=== PATIENT | female | born 2000 | race Caucasian/White ===

== ENCOUNTER 2018-01-27 17:20 | Emergency (ER) | payer BC ==
[2018-01-27 19:43] VITALS: BP 129/65
[2018-01-27] MEDS: Ibuprofen TAB* 600 MG PO ONE (19:45)
--- NOTE | 2018-01-27 20:01 | UC ---
HPI Febrile Illness - HPI Summary HPI Summary: 5 days of myalgias, headache and fever. No cough, negative flu. Student at [employer], lots of exposures. No vomiting or diarrhea, no urinary sx, no vaginal sx, no abdominal pain. - History of Current Complaint Chief Complaint: UCGeneralIllness Time Seen by Provider: 01/27/18 17:51 Hx Obtained From: Patient Hx Last Menstrual Period: 01/03/18 Onset/Duration: Started Days Ago - 5 Timing: Intermittent, Lasting Hours Temperature: 103 F Initial Severity: Mild Current Severity: Moderate Pain Intensity: 3 Aggravating Factors: Nothing Associated Signs and Symptoms: Headache, Myalgia - Risk Factors Pseudomonas Risk Factors: Negative Serious Bacterial Infection Risk Factors: Negative - Additional Pertinent History Current Antibiotics: No - Allergy/Home Medications Allergies/Adverse Reactions: Allergies Allergy/AdvReac Type Severity Reaction Status Date / Time amoxicillin [From Augmentin] Allergy Rash Verified 01/27/18 17:37 clavulanic acid Allergy Rash Verified 01/27/18 17:37 [From Augmentin] Home Medications: Home Medications Tri-Estarylla (Nf) [Tri-Estarylla] 1 tab PO DAILY 01/27/18 [History Confirmed ] PMH/Surg Hx/FS Hx/Imm Hx Previously Healthy: Yes - Surgical History Surgical History: None - Family History Known Family History: Positive: None - parents living and healthy - Social History Occupation: Student Lives: Alone Alcohol Use: Rare Substance Use Type: None Smoking Status (MU): Never Smoked Tobacco Review of Systems Constitutional: Fever, Fatigue Skin: Negative Eyes: Negative ENT: Negative Respiratory: Negative Cardiovascular: Negative Gastrointestinal: Negative Genitourinary: Negative Motor: Negative Neurovascular: Negative Musculoskeletal: Myalgia Neurological: Headache - frontal, no photophobia or eye findings. Psychological: Negative Is Patient Immunocompromised?: No All Other Systems Reviewed And Are Negative: Yes Physical Exam Triage Information Reviewed: Yes Appearance: Ill-Appearing - looks mildly unwell, well hydrated, febrile and flushed, alert and interactive. Vital Signs: Initial Vital Signs Temp 100.7 F 01/27/18 17:35 Pulse 100 01/27/18 17:35 Resp 18 01/27/18 17:35 BP 136/69 01/27/18 17:35 Pulse Ox 99 01/27/18 17:35 Vital Signs Reviewed: Yes Eyes: Positive: Conjunctiva Clear ENT: Positive: Pharyngeal erythema, TMs normal, Tonsillar swelling - minimal swelling, no exudate Neck: Positive: Supple, Nontender, Enlarged Nodes @ - left tonsillar, right posterior cervical, about 6 small palpable occipital nodes. 1 2 cm node in posterior left axilla, small nodes left inguinal Respiratory: Positive: Lungs clear, Normal breath sounds Cardiovascular: Positive: RRR, No Murmur, Tachycardia Abdomen Description: Positive: Nontender, Soft, Splenomegaly - possible. Pina' s space dull, but cannot capture spleen in the left decubitus position. Neurological: Positive: Alert, Muscle Tone Normal Psychological Exam: Normal Skin Exam: Other - flushed, sweating, no rashes. Course/Dx - Course Course Of Treatment: clincal findings consistent with mono, labs done. Discussed symptomatic treatment. - Febrile Illness Differential Diagnoses: Fever of Unknown Origin, Pneumonia, Other: - UTI, influenza - Diagnoses Clinic Provider Diagnoses: infectious mononucleosus Discharge - Discharge Plan Condition: Stable Disposition: HOME Patient Education Materials: Mononucleosis (ED) Referrals: Non Staff,Doctor [Primary Care Provider] - Additional Instructions: Clinically, the findings of lymph nodes and fever suggest mononucleosus. This is a viral illness with a very variable course. The best thing is to increase your rest and sleep, stay hydrated. I suggest a follow up visit to your primary care doctor next week for a recheck of your spleen, which might be a little enlarged. Confirmatory lab testing results will be available tomorrow afternoon. You can call for a report.
[2018-01-28 12:51] LABS: ABS Neutrophils 2.3 10^3/ul (1.5-7.7); Hematocrit 38 % (35-47); Hemoglobin 13.4 g/dl (12.0-16.0); Mean Corpuscular HGB Conc 35 g/dl (31-36); Mean Corpuscular Hemoglobin 30 pg (27-31); Mean Corpuscular Volume 85 fL (80-97); Mean Platelet Volume 10 um3 (7.4-10.4); Platelet Count 91 10^3/ul (150-450); Red Blood Count 4.53 10^6/ul (4.0-5.4); Red Cell Distribution Width 14 % (10.5-15); White Blood Count 3.9 10^3/ul (3.5-10.8)
[2018-01-28 12:58] LABS: Monocytes % 9 % (0-7)
== END 2018-01-27 20:28 | disposition home or self-care (01) ==
LOC: UCCORT 17:20
DX: B27.90 Infectious mononucleosis, unspecified without complication (principal); Z88.0 Allergy status to penicillin; Z88.8 Allergy status to other drugs, medicaments and biological substances
CPT/HCPCS: 36415; 85025; 85060; 86308; 87502; 99202; A9270-GY; G0463

== ENCOUNTER 2018-02-13 08:09 | Emergency (ER) | payer BC ==
[2018-02-13 08:22] VITALS: BP 137/69
--- NOTE | 2018-02-13 08:30 | UC ---
Throat Pain/Nasal Maurizio HPI - HPI Summary HPI Summary: sore throat, nasal congestion, ear pain bilaterally, npc, difficulty swallowing. [facility] and treated with prednisone for 5days without relief. has fever/chills taking ibuprofen otc with some relief of fever/ discomfort. - History of Current Complaint Chief Complaint: UCGeneralIllness Stated Complaint: SORE THROAT Time Seen by Provider: 02/13/18 08:24 Hx Obtained From: Patient Hx Last Menstrual Period: 01/31/18 Onset/Duration: Lasting Days Severity: Severe Pain Intensity: 10 Cough: Nonproductive Associated Signs & Symptoms: Positive: Dysphagia, Sinus Discomfort, Nasal Discharge, Fever - Epiglottits Risk Factors Epiglottis Risk Factors: Negative - Allergies/Home Medications Allergies/Adverse Reactions: Allergies Allergy/AdvReac Type Severity Reaction Status Date / Time amoxicillin [From Augmentin] Allergy Rash Verified 02/13/18 08:21 clavulanic acid Allergy Rash Verified 02/13/18 08:21 [From Augmentin] PMH/Surg Hx/FS Hx/Imm Hx Previously Healthy: Yes - Surgical History Surgical History: None - Family History Known Family History: Positive: None - parents living and healthy - Social History Occupation: Student Lives: With Family Alcohol Use: Rare Substance Use Type: None Smoking Status (MU): Never Smoked Tobacco Review of Systems Constitutional: Fever, Chills Skin: Negative Eyes: Negative ENT: Sore Throat, Ear Ache, Nasal Discharge, Sinus Congestion Respiratory: Cough - nonprod Cardiovascular: Negative Gastrointestinal: Negative Genitourinary: Negative Musculoskeletal: Negative Neurological: Negative Psychological: Negative Is Patient Immunocompromised?: No All Other Systems Reviewed And Are Negative: Yes Physical Exam Triage Information Reviewed: Yes Appearance: Ill-Appearing Vital Signs: Initial Vital Signs Temp 99.4 F 02/13/18 08:11 Pulse 113 02/13/18 08:11 Resp 20 02/13/18 08:11 BP 137/69 02/13/18 08:11 Pulse Ox 98 02/13/18 08:11 Vital Signs Reviewed: Yes Eye Exam: Normal ENT: Positive: Pharyngeal erythema, Nasal congestion, TM bulging - right, Sinus tenderness Respiratory Exam: Normal Cardiovascular Exam: Normal Abdominal Exam: Normal Musculoskeletal Exam: Normal Neurological Exam: Normal Psychological Exam: Normal Skin Exam: Normal Throat Pain/Nasal Course/Dx - Course Course Of Treatment: rapid strep swab done - results negative. continue ibuprofen as directed on bottle every 6 hours for pain/fever. continue fluids daily while on abx. to prevent dehydration. take abx as directed full course with food to prevent GI upset. f/u prn - Differential Dx/Diagnosis Differential Diagnosis/HQI/PQRI: Pharyngitis, Sinusitis Provider Diagnoses: strep throat/sinusitis Discharge - Sign-Out/Discharge Documenting (check all that apply): Discharge - Discharge Plan Condition: Good Disposition: HOME Prescriptions: Clarithromycin TAB* [Biaxin 500 MG TAB*] 500 mg PO BID 10 Days #20 tab Patient Education Materials: Pharyngitis (ED), Sinusitis (ED) Referrals: Non Staff,Doctor [Primary Care Provider] - KACEY BRYSON [, APPLICATION, OTHER] - 1 Week - Billing Disposition and Condition Condition: GOOD Disposition: HOME
== END 2018-02-13 08:53 | disposition home or self-care (01) ==
LOC: UCCORT 08:09
DX: J02.0 Streptococcal pharyngitis (principal); J32.9 Chronic sinusitis, unspecified; Z88.3 Allergy status to other anti-infective agents
CPT/HCPCS: 87651; 99212; G0463

== ENCOUNTER 2019-08-13 16:33 | Emergency (ER) | payer BC ==
[2019-08-13 17:04] VITALS: BP 128/64
[2019-08-13] MEDS ORDERED: Neomyc/Polym/HC 1% OTIC SUSP* **OTIC LEFT EAR ONE (17:18)
[2019-08-13] MEDS ORDERED: Clindamycin CAP* 150 MG PO ONE ×2 (17:19→17:32)
--- NOTE | 2019-08-13 17:20 | UC ---
Ear Complaint HPI - HPI Summary HPI Summary: 19-year-old female comes in with a chief complaint of left ear pain and facial swelling. Ear pain started yesterday. She is a swimmer. Pain started in the ear. She has had an upper respiratory tract infection symptoms for at least week but that has been improving. No fevers or chills. Pains worse with any palpation or pain closing her mouth. Denies any dental pain. - History of Current Complaint Chief Complaint: UCEar Stated Complaint: EAR PAIN Time Seen by Provider: 08/13/19 17:06 Hx Last Menstrual Period: 07/14/19 Pain Intensity: 5 - Allergies/Home Medications Allergies/Adverse Reactions: Allergies Allergy/AdvReac Type Severity Reaction Status Date / Time amoxicillin [From Augmentin] Allergy Rash Verified 08/13/19 17:04 clavulanic acid Allergy Rash Verified 08/13/19 17:04 [From Augmentin] PMH/Surg Hx/FS Hx/Imm Hx Previously Healthy: Yes - Surgical History Surgical History: None - Family History Known Family History: Positive: None - Social History Alcohol Use: Rare Substance Use Type: None Smoking Status (MU): Never Smoked Tobacco Review of Systems All Other Systems Reviewed And Are Negative: Yes Constitutional: Positive: Negative Skin: Positive: Negative Eyes: Positive: Negative ENT: Positive: Ear Ache, Other - SEE HPI Respiratory: Positive: Negative Cardiovascular: Positive: Negative Gastrointestinal: Positive: Negative Motor: Positive: Negative Neurovascular: Positive: Negative Musculoskeletal: Positive: Negative Neurological: Positive: Negative Psychological: Positive: Negative Is Patient Immunocompromised?: No Physical Exam Triage Information Reviewed: Yes Appearance: Well-Appearing, Well-Nourished, Pain Distress - MILD Vital Signs: Initial Vital Signs Temp 98.5 F 08/13/19 17:00 Pulse 69 08/13/19 17:00 Resp 16 08/13/19 17:00 BP 128/64 08/13/19 17:00 Pulse Ox 100 08/13/19 17:00 Vital Signs Reviewed: Yes Eye Exam: Normal Eyes: Positive: Conjunctiva Clear ENT: Positive: Other - Left ear canal is swollen. Tragus on the left is tender to palpation. She does have some swelling in the area. No dental pain. No rash. Neck: Positive: Supple Respiratory: Positive: Lungs clear, Normal breath sounds, No respiratory distress Cardiovascular: Positive: RRR Musculoskeletal: Positive: Strength Intact, ROM Intact Neurological: Positive: Alert Psychological: Positive: Age Appropriate Behavior Skin Exam: Normal Ear Complaint Course/Dx - Course Course Of Treatment: With the swelling on the side of the face, treat also with oral antibiotics in addition to the ear drops. - Differential Dx/Diagnosis Provider Diagnosis: Left otitis externa Discharge ED - Sign-Out/Discharge Documenting (check all that apply): Patient Departure All imaging exams completed and their final reports reviewed: No Studies - Discharge Plan Condition: Stable Disposition: HOME Prescriptions: Clindamycin Cap(NF) [Clindamycin Cap 300 mg Cap(NF)] 300 mg PO TID #28 cap Patient Education Materials: Otitis Externa (ED) Referrals: [facility] [Outside] Additional Instructions: FOLLOW UP WITH YOUR DOCTOR IF NOT COMPLETELY IMPROVED. GET REEVALUATED SOONER IF WORSE OR ANY QUESTIONS OR CONCERNS. - Billing Disposition and Condition Condition: STABLE Disposition: Home
== END 2019-08-13 17:40 | disposition home or self-care (01) ==
LOC: UCCORT 16:34
DX: H60.92 Unspecified otitis externa, left ear (principal); Z88.0 Allergy status to penicillin
CPT/HCPCS: 99213; A9270-GY; G0463